=== PATIENT | female | born 1970 | race Caucasian/White ===

== ENCOUNTER 2017-08-10 00:36 | Emergency (ER) | payer SELFPAY ==
[2017-08-10] MEDS ORDERED: NALOXONE HYDROCHLORIDE 0.4 MG/ML SOL ONE (00:41)
[2017-08-10] MEDS: NALOXONE HYDROCHLORIDE 0.4 MG/ML SOL IV ONE ×2 (00:42)
[2017-08-10] MEDS ORDERED: NALOXONE HYDROCHLORIDE 0.4 MG/ML SOL IV ONE (00:42)
[2017-08-10] MEDS ORDERED: LORAZEPAM 2 MG/ML SOL IV ONE (00:45)
[2017-08-10] MEDS ORDERED: LORAZEPAM 2 MG/ML SOL ONE (00:45)
[2017-08-10] MEDS ORDERED: ATROPINE 0.1 MG/ML SOL ONE (00:46)
[2017-08-10] MEDS ORDERED: SODIUM CHLORIDE 0.9% 1000ML 1,000 ML IV ONE ×2 (00:46→01:10)
[2017-08-10] MEDS ORDERED: SUCCINYLCHOLINE CHLORIDE 20 MG/ML SOL IV ONE ×2 (00:46→00:55)
[2017-08-10] MEDS ORDERED: LIDOCAINE HCL 2% (100 MG) CARP ONE (00:46)
[2017-08-10] MEDS ORDERED: ETOMIDATE 2 MG/ML SOL IV ONE (00:46)
[2017-08-10] MEDS ORDERED: ROCURONIUM BROMIDE 10 MG/ML SOL IV ONE (00:46)
[2017-08-10] MEDS ORDERED: MIDAZOLAM 2 MG/2 ML SOL ONE (00:48)
[2017-08-10 00:52] LABS: BASOPHILS % (AUTO) 1 % (0-3); EOSINOPHILS % (AUTO) 1 % (0-9); HEMATOCRIT 38 % (35-47); MEAN CORPUSCULAR HGB CONC 34.5 gm/dl (32.0-36.0); MEAN CORPUSCULAR VOLUME 91 fL (81-99); MONOCYTES % (AUTO) 10.8 % (0-12); NEUTROPHILS % (AUTO) 64.6 % (37-80)
[2017-08-10] MEDS ORDERED: MIDAZOLAM 2 MG/2 ML SOL IV ONE (00:56)
[2017-08-10 01:18] LABS: ALT 29 IU/L (14-63); CALCIUM 8.4 mg/dl (8.5-10.1); GLOM FILT RATE 69 mL/min (>60); POTASSIUM 3.5 mMol/L (3.5-5.1); SALICYLATE < 2.8 mg/dl (2.8-30.0); SODIUM 146 mMol/L (136-145)
[2017-08-10 01:42] LABS: APPEARANCE,URINE Clear; BILIRUBIN,URINE NEGATIVE (NEGATIVE); GLUCOSE, URINE (UA) NEGATIVE (NEGATIVE); KETONES,URINE NEGATIVE (NEGATIVE); LEUKOCYTE ESTERASE ,URINE NEGATIVE (NEGATIVE); NITRATE,URINE NEGATIVE (NEGATIVE); OCCULT BLOOD,URINE TRACE LYSED (NEG-TRACE); UROBILINOGEN,URINE 0.2 (0.2-1.0 EU)
[2017-08-10 01:43] VITALS: O2SAT 100
[2017-08-10 01:43] LABS: COLOR,URINE COLORLESS; RBC,URINE NEG (0-3AV/HPF); WBC,URINE NEG (0-5AV/HPF)
[2017-08-10 01:44] LABS: AMPHETAMINES NEGATIVE (NEGATIVE); METHADONE NEGATIVE (NEGATIVE); OPIATES(OP13) NEGATIVE (NEGATIVE); OXYCODONE(OXY) NEGATIVE (NEGATIVE); PROPOXYPHENE(PPX) NEGATIVE (NEGATIVE); TRICYCLIC ANTIDEPRESSANTS NEGATIVE (NEGATIVE)
[2017-08-10 01:48] VITALS: BP 156/108; PULSE 85; RESP 15
[2017-08-10 02:10] VITALS: TEMP 97.4
[2017-08-10] MEDS ORDERED: SODIUM CHLORIDE 0.9% FLUSH 10 ML SOL IV PRN (02:34)
== END 2017-08-10 01:17 | disposition short-term general hospital (02) | DRG 298 ==
LOC: ED 00:36
DX: I46.9 Cardiac arrest, cause unspecified (principal); I45.10 Unspecified right bundle-branch block; R29.728 NIHSS score 28; R40.2432 Glasgow coma scale score 3-8, at arrival to emergency department
CPT/HCPCS: 36415; 71045; 80053; 80305; 80307; 81001; 83735; 84484; 84703; 85025; 93005; 99291; J0330; J0461; J2001; J2060; J2250; J2310; A9270-GY; J3490